=== PATIENT | female | born 2000 | race Caucasian/White ===

== ENCOUNTER → 2025-04-19 | Outpatient (REF) | payer BC, OTHER | LOC: M LAB REF 17:05 | PROVIDERS: ATTEND Physician Assistant | DX: B34.9 Viral infection, unspecified (principal) ==

== ENCOUNTER 2025-04-27 15:20 | Emergency (ER) | payer BC, OTHER ==
[~2025-04-27] VITALS: Ht 160 cm; Wt 108.8 kg
[2025-04-27] MEDS ORDERED: LEXA1TAB PO (16:19)
[2025-04-27 20:27] LABS: PLATELET COUNT, AUTOMATED 338 10^3/uL (150-450)
[2025-04-27] MEDS: ALBUTEROL SULFATE 2.5 MG/0.5 ML INH CONCENTRATE NEB SOLN NEB ONE (20:32)
[2025-04-27 20:44] LABS: ATYPICAL LYMPH 5 % (0-5); EOSINOPHILS 2 % (0-3); LYMPHOCYTES 41 % (16-44); MONOCYTES 1 % (0-5); NEUTROPHILS 51 % (28-66)
[2025-04-27 20:45] LABS: PLATELET ESTIMATE NORMAL (NORMAL)
[2025-04-27 20:53] LABS: CALCIUM LEVEL 8.7 MG/DL (8.5-10.1); CARBON DIOXIDE LEVEL 27 MMOL/L (20-31); CHLORIDE LEVEL 105 MMOL/L (98-107); CREATININE FOR GFR 0.68 MG/DL (0.55-1.30); GLOMERULAR FILTRATION RATE > 90.0 (>60); POTASSIUM SERUM 4.4 MMOL/L (3.5-5.1); SODIUM LEVEL 141 MMOL/L (136-145)
[2025-04-27] MEDS ORDERED: ISOVUE-370 76% 100 ML VIAL As Ordered ONE (21:41)
[2025-04-27 22:14] LABS: HCG, SERUM QUALITATIVE NEGATIVE (NEGATIVE)
[2025-04-27] MEDS ORDERED: AMOX875T2 PO (22:58)
[2025-04-27 23:19] VITALS: BP 126/81; TEMP 97; O2SAT 99
== END 2025-04-27 23:20 | disposition home or self-care (01) ==
LOC: M ED 15:20
DX: J20.9 Acute bronchitis, unspecified (principal); E28.2 Polycystic ovarian syndrome; Z79.2 Long term (current) use of antibiotics; Z79.899 Other long term (current) drug therapy; Z88.1 Allergy status to other antibiotic agents
CPT/HCPCS: 36415; 71045; 71275; 80048; 84703; 85025; 87486; 87581; 87633; 87798; 94640; 99284; Q9967